=== PATIENT | male | born 1965 | race American Indian/Alaskan Native ===

== ENCOUNTER 2019-05-30 21:28 | Emergency (ER) | payer MEDICAID ==
--- NOTE | 2019-05-30 22:01 | EDM.PDOC ---
ED HPI GENERAL MEDICAL PROBLEM - General Chief Complaint: ENT Problem Stated Complaint: RIGHT EAR, PIECE OF WILD RICE IN EAR Time Seen by Provider: 05/30/19 21:45 Source of Information: Reports: Patient History Limitations: Reports: No Limitations - History of Present Illness INITIAL COMMENTS - FREE TEXT/NARRATIVE: 53-year-old male was harvesting wild rice today and he thinks he has some rice in his ears. Associated Symptoms: Reports: No Other Symptoms - Related Data Allergies Allergy/AdvReac Type Severity Reaction Status Date / Time No Known Allergies Allergy Verified 05/30/19 21:59 Home Meds: Home Meds NK [No Known Home Meds] 05/30/19 [History] ED ROS ENT - Review of Systems Review Of Systems: See Below Constitutional: Denies: Fever, Chills HEENT: Reports: Ear Pain (Ears are uncomfortable because of perceived foreign bodies) Respiratory: Denies: Shortness of Breath, Cough GI/Abdominal: Denies: Abdominal Pain, Nausea, Vomiting ED EXAM, ENT - Physical Exam Exam: See Below Exam Limited By: No Limitations General Appearance: Alert, No Apparent Distress Ears: Other (Both his ear canals have what appears to be some dried wax but I did not see rice foreign body.) Respiratory/Chest: No Respiratory Distress Course - Vital Signs Last Recorded V/S: Last Vital Signs Temp 98.4 F 05/30/19 22:02 Pulse 76 05/30/19 22:02 Resp 16 05/30/19 22:02 BP 137/93 H 05/30/19 22:02 Pulse Ox 98 05/30/19 22:02 - Re-Assessments/Exams Free Text/Narrative Re-Assessment/Exam: 05/30/19 22:01 I was unable to convince the patient that there was no rice in his ears. There was some cerumen however so this was washed out. 05/30/19 22:11 Flushing years really did not produce any foreign body or wax. Patient was discharged. Departure - Departure Time of Disposition: 22:10 Disposition: Home, Self-Care 01 Clinical Impression: Pain, ear Qualifiers: Laterality: bilateral Qualified Code(s): H92.03 - Otalgia, bilateral - Discharge Information Instructions: Earache, Adult Referrals: PCP,None [Primary Care Provider] - Forms: ED Department Discharge Care Plan Goals: Patient was reassured but left without signing or receiving discharge instructions.
== END 2019-05-30 22:20 | disposition home or self-care (01) ==
LOC: JP.ED 21:28
DX: H92.03 Otalgia, bilateral (principal)
CPT/HCPCS: 99282